=== PATIENT | male | born 1955 | race Caucasian/White ===

== ENCOUNTER 2021-06-04 10:38 | Observation (INO) ==
[2021-06-04 11:37] LABS: Basophils % 0.4 % (0.0-0.8); Eosinophils # 0.1 10*3/uL (0.0-0.87); Eosinophils % 0.9 % (0.00-10.9); Hematocrit 45.8 VOL% (42.0-52.0); Hemoglobin 14.8 GM/DL (14.0-18.0); Immature Granulocytes % 0.4 %; Immature Granulocytes Absolute 0.03 #; Lymphocytes # 1.1 10*3/uL (1.4-4.0); Lymphocytes % 14.2 % (21.2-54.2); Mean Corpuscular HGB Conc 32.3 GM/DL (32-36); Mean Platelet Volume 8.6 FL (9.6-12.0); Monocytes % 11.2 % (1.7-12.7); Neutrophils % 72.9 % (38.7-73.9); Platelet Count 235 T/CUMM (130-400); Red Blood Count 4.98 MC/CUMM (3.8-5.5); Red Cell Distribution Width 14.2 % (9.3-17.3); White Blood Count 7.4 T/CUMM (4-12)
[2021-06-04 12:01] LABS: Albumin 3.7 G/DL (3.4-5.0); Bilirubin,Total 0.5 MG/DL (0.20-1.00); Calcium 9.2 MG/DL (8.5-10.1); Osmolality,Calculated 286.3 MOS/KG (273-304); Potassium 4.3 MMOL/L (3.5-5.1); Total Protein 7.5 G/DL (6.4-8.2)
[2021-06-04] MEDS ORDERED: SODIUM CHLORIDE 0.9% 1,000 ML IV STA (13:23)
[2021-06-04] MEDS ORDERED: ZALEPLON 5 MG CAPSULE PO PRN (16:16)
[2021-06-04] MEDS ORDERED: GLUCAGON 1 MG VIAL IM PRN (16:16)
[2021-06-04] MEDS ORDERED: ONDANSETRON 4 MG/2 ML VIAL IV PRN (16:16)
[2021-06-04] MEDS ORDERED: ACETAMINOPHEN 325 MG TABLET PO PRN (16:16)
[2021-06-04] MEDS ORDERED: DEXTROSE 10% 250 ML BAG IV PRN (16:22)
[2021-06-04] MEDS ORDERED: NITROGLYCERIN SL 0.4 MG TABLET SL PRN (16:22)
[2021-06-04] MEDS ORDERED: ENOXAPARIN 40 MG/0.4 ML SYRINGE SUBCUT SCH (16:30)
[2021-06-04] MEDS ORDERED: FENOFIBRATE 145 MG TABLET PO SCH (21:00)
[2021-06-04] MEDS ORDERED: METOPROLOL SUCCINATE XL 25 MG TABLET PO SCH (21:00)
[2021-06-04] MEDS ORDERED: ROSUVASTATIN 20 MG TABLET PO SCH (21:00)
[2021-06-04] MEDS ORDERED: INSULIN ASPART PROTAMINE/ASPART 70/30 100 UNIT/ML SUBCUT SCH (21:00)
[2021-06-04] MEDS ORDERED: OLMESARTAN 5 MG TABLET PO SCH (21:00)
[2021-06-04] MEDS: TICAGRELOR 90 MG TABLET PO SCH (21:13)
[2021-06-04] MEDS: OMEGA 3 ACID ETHYL ESTERS 1 GM CAPSULE PO SCH (21:13)
[2021-06-04] MEDS: TAMSULOSIN 0.4 MG CAPSULE PO SCH (21:15)
[2021-06-04] MEDS: FAMOTIDINE 20 MG TABLET PO SCH (21:16)
[2021-06-05 04:43] LABS: Basophils % 0.4 % (0.0-0.8); Eosinophils # 0.2 10*3/uL (0.0-0.87); Eosinophils % 2.9 % (0.00-10.9); Hematocrit 41.8 VOL% (42.0-52.0); Hemoglobin 13.4 GM/DL (14.0-18.0); Immature Granulocytes % 0.2 %; Immature Granulocytes Absolute 0.01 #; Lymphocytes # 1.3 10*3/uL (1.4-4.0); Mean Corpuscular HGB Conc 32.1 GM/DL (32-36); Mean Corpuscular Volume 92.9 FL (87-102); Mean Platelet Volume 8.6 FL (9.6-12.0); Monocytes % 14.3 % (1.7-12.7); Neutrophils % 56.2 % (38.7-73.9); Platelet Count 189 T/CUMM (130-400); Red Cell Distribution Width 14.2 % (9.3-17.3); White Blood Count 5.1 T/CUMM (4-12)
[2021-06-05 05:14] LABS: Calcium 8.5 MG/DL (8.5-10.1); Osmolality,Calculated 287.1 MOS/KG (273-304); Potassium 4.5 MMOL/L (3.5-5.1); Risk Ratio 4.46; Thyroid Stimulating Hormone 2.07 uIU/ml (0.358-3.74)
[2021-06-05] MEDS: TAMSULOSIN 0.4 MG CAPSULE PO SCH (08:52)
[2021-06-05] MEDS: OMEGA 3 ACID ETHYL ESTERS 1 GM CAPSULE PO SCH (08:52)
[2021-06-05] MEDS: FAMOTIDINE 20 MG TABLET PO SCH (08:52)
[2021-06-05] MEDS: TICAGRELOR 90 MG TABLET PO SCH (08:52)
[2021-06-05] MEDS ORDERED: LIRAGLUTIDE 0.6 MG/0.1 ML SUBCUT SCH (09:00)
[2021-06-05] MEDS ORDERED: INSULIN ASPART PROTAMINE/ASPART 70/30 100 UNIT/ML SUBCUT SCH (09:00)
[2021-06-05] MEDS ORDERED: DAPAGLIFLOZIN 10 MG TABLET PO SCH (09:00)
[2021-06-05] MEDS ORDERED: FINASTERIDE 5 MG TABLET PO SCH (09:00)
[2021-06-05] MEDS ORDERED: ASPIRIN EC 81 MG TABLET PO SCH (09:00)
[2021-06-05] MEDS ORDERED: PANTOPRAZOLE 40 MG TABLET PO SCH (09:00)
[2021-06-05] MEDS ORDERED: MULTIVITAMIN (CENTRUM) TABLET PO SCH (09:00)
[2021-06-05] MEDS ORDERED: CHOLECALCIFEROL 5,000 UNIT TABLET PO SCH (09:00)
[2021-06-05 09:25] VITALS: BP 101/53
== END 2021-06-05 12:05 | disposition home or self-care (01) ==
LOC: N.EDINP 10:38 → N.ED 10:38 → N.EDINP 17:04 → N.TELES 17:08
PROVIDERS: ADMIT Internal Medicine Cardiovascular Disease; ATTEND Internal Medicine Cardiovascular Disease